=== PATIENT | male | born 1955 | race Caucasian/White ===

== ENCOUNTER 2018-01-08 06:43 | Day surgery (SDC) | END 2018-01-08 11:27 | disposition home or self-care (01) ==

== ENCOUNTER 2018-07-18 15:48 | Emergency (ER) | payer BC ==
[~2018-07-18] VITALS: Wt 73.9 kg
[~2018-07-18 15:48] MED LIST: OMEPRAZOLE
[2018-07-18 15:51] VITALS: BP 159/103; PULSE 76; RESP 20
[2018-07-18] MEDS ORDERED: DEXT15DR5 OP (16:36)
[2018-07-18] MEDS ORDERED: CARB-155 BOTH EARS (16:39)
--- NOTE | 2018-07-18 16:42 | ERD ---
ER Documentation Chief Complaint Chief Complaint RT EYE HEMATOMA X1DAY WITH HEADACHE/EAR PRESSURE HPI 62-year-old male presents with some redness in the right eye for the last day. Denies any visual changes or history of trauma or inciting events. Denies contact lens use. He has an additional complaint of congestion in the bilateral ears. Has bleeding or discharge URI symptoms. ROS All systems reviewed and are negative except as per history of present illness. Medications Home Meds Active Scripts Carbamide Peroxide* (Debrox*) 6.5% -15 Ml Drops, 10 DROP BOTH EARS BID for 7 Days, EA Prov:AARON MIMS MD 07/18/18 Dextran 70/Hypromellose (ARTIFICIAL TEARS EYE DROPS) 15 Ml Drops, 15 ML OP QID for 7 Days, BOTTLE Prov:AARON MIMS MD 07/18/18 Reported Medications [Omeprazole] No Conflict Check 01/08/18 Allergies Allergies: Coded Allergies: Penicillins (Verified Allergy, Unknown, 01/08/18) PMhx/Soc History of Surgery: Yes (prostate) Anesthesia Reaction: No Hx Neurological Disorder: No Hx Respiratory Disorders: No Hx Cardiac Disorders: No Hx Psychiatric Problems: No Hx Miscellaneous Medical Probl: Yes (gastritis) Hx Alcohol Use: No Hx Substance Use: No Hx Tobacco Use: No FmHx Family History: No diabetes, No coronary disease, No other Physical Exam Vitals Vital Signs Date Temp Pulse Resp B/P (MAP) Pulse Ox O2 O2 Flow FiO2 Time Delivery Rate 07/18/18 97.7 76 20 159/103 99 15:51 (121) Physical Exam Const: No acute distress Head: Atraumatic Eyes: Right eye subconjunctival hemorrhage from approximately 2:00 to 6:00 of the right eye. Eyes Chelsey Composed intact. Anterior chambers appear normal. ENT: Normal External Ears, Nose and Mouth. Bilateral cerumen impaction. Neck: Full range of motion. No meningismus. Resp: Clear to auscultation bilaterally Cardio: Regular rate and rhythm, no murmurs Abd: Soft, non tender, non distended. Normal bowel sounds Skin: No petechiae or rashes Back: No midline or flank tenderness Ext: No cyanosis, or edema Neur: Awake and alert Psych: Normal Mood and Affect Procedures/MDM Visual acuity shows no acute abnormalities. Your lavage was offered but patient declined and will see his primary doctor. Patient is noted to have elevated blood pressure without a history of high blood pressure. Doubt endorgan damage or hypertensive emergency as patient has no chest pain, shortness of breath, additional concerning symptoms. He will be treated with artificial tears, Debrox, primary care follow-up and return precautions. The patient was stable with no new complaints during the ER course. Clinically, there is no current evidence to suggest meningitis, sepsis, acute abdomen, pneumonia, stroke, acute coronary syndrome, pulmonary embolism, aortic dissection or any other emergent condition appearing to require further evaluation or hospitalization. Patient counseled regarding my diagnostic impression and care plan. Prior to discharge all questions answered. Pt agrees with treatment plan and understands strict return precautions. Pt is instructed to follow up with primary care provider within 24-48 hours. Precautionary instructions provided including instructions to return to the ER if not improving or for any worsening or changing symptoms or concerns. The patient's blood pressure was elevated (>120/80) but appears stable without evidence of hypertension emergency or urgency. The patient was counseled about the risks of hypertension and urged to pursue outpatient monitoring and therapy within a week with their primary care physician. I discussed the findings with the patient. I advised the patient to follow-up with the primary physician in about 1-2 days, sooner if needed and return if any concern. Departure Diagnosis: Primary Impression: Subconjunctival hemorrhage Laterality: right Qualified Codes: H11.31 - Conjunctival hemorrhage, right eye Condition: Stable Patient Instructions: Cerumen Impaction, Home Care, Hypertension, To Be Confirmed, Subconjunctival Hemorrhage Referrals: [facility] Hours: Sat - Sat 9:00 AM - 5:00 PM Additional Instructions: Cheque otro vez con king doctor primario en el proximo hidalgo or regresa para mas o nueva simptomas. Va al king doctor/ specialista para mas evaluacon en el proximo semana. posiblemente necesita autorizado de king doctor primario para specialista. Regresa para fiebre, o mas o nueva simptomas. AARON MIMS MD Jul 18, 2018 16:42
== END 2018-07-18 16:54 | disposition home or self-care (01) ==
LOC: FTE 15:48
DX: H11.31 Conjunctival hemorrhage, right eye (principal)
CPT/HCPCS: 99282